=== PATIENT | male | born 1975 | race Hispanic/Latino ===

== ENCOUNTER 2018-01-06 17:27 | Emergency (ER) | payer BC ==
[~2018-01-06] VITALS: Ht 160 cm; Wt 99.8 kg
[~2018-01-06 17:27] MED LIST: METFORMIN HCL500 MG PO
[2018-01-06] MEDS ORDERED: KETOROLAC TROMETHAMINE 30 MG/ML VIAL IM ONE (18:15)
[2018-01-06] MEDS ORDERED: ONDANSETRON HCL 4 MG ORAL DISINTEGRATING TAB SL ONE (18:15)
== END 2018-01-06 18:42 | disposition home or self-care (01) ==
LOC: FSED 17:27
DX: G44.89 Other headache syndrome (principal)
CPT/HCPCS: 99284; J1885

== ENCOUNTER 2018-10-24 19:36 | Emergency (ER) | payer BC ==
[~2018-10-24] VITALS: Ht 160 cm; Wt 99.8 kg
--- OUTSIDE RECORDS SUMMARY | 2018-10-24 19:39 | XMS REPORT ---
Author Author [facility] Address Unknown Phone Unavailable Care Team Providers Care Dumpster Driver Name Role Phone Unavailable Unavailable Payers Payer Name Policy Type Policy Number Effective Date Expiration Date Problems This patient has no known problems. Allergies, Adverse Reactions, Alerts Allergy Name Allergy Type Status Severity Reaction(s) Onset Date Inactive Date Treating Clinician Comments No Known Allergies DA Active U 2012-05-25 00:00:00 Medications This patient has no known medications.
== END 2018-10-24 20:20 | disposition home or self-care (01) ==
LOC: FSED 19:36
DX: R50.9 Fever, unspecified (principal); R05 Cough; J11.1 Influenza due to unidentified influenza virus with other respiratory manifestations
CPT/HCPCS: 87400; 99283